=== PATIENT | male | born 2000 | race Hispanic/Latino ===

== ENCOUNTER 2025-07-03 07:57 | Emergency (ER) | payer SELFPAY ==
--- OUTSIDE RECORDS SUMMARY | 2025-07-03 08:05 | XMS REPORT | Continuity of Care Document ---
Author Name Unknown Address [address] [place] [address] [facility] Address [address] [place] [address] Care Team Providers Care Faculty Head Name Role Phone Quyen Lozano Primary Care Physician [phone] VAISHALI COLLINS Attending Clinician Unavailable VAISHALI COLLINS Attending Clinician Unavailable Vaishali Collins NP Attending Clinician [phone] JESSICA GRIFFITH Attending Clinician Unavailable Jessica Griffith MD Attending Clinician MAYA DE SANTIAGO Attending Clinician Unavaila ble Maya Dos Santos Attending Clinician [phone] VAISHALI COLLINS Admitting Clinician Unavailable MAYA DE SANTIAGO Admitting Clinician Unavaila ble Allergies, Adverse Reactions, Alerts Allergy Name Allergy Type Status Severity Reaction(s) Onset Date Inactive Date Treating Clinician Comments Source NO KNOWN ALLERGIE S Drug Class Active [facility] Social History Social Habit Start Date Stop Date Quantity Comments Source Sexual orientation U [facility] Sex assigned at 2000 00:00:00 2000 00:00:00 [facility] Smoking Status Start Date Stop Date Source Tobacco smoking consumption unknown [facility] Medications Ordered Medication Name Filled Medication Name Start Date Stop Date Current Medication? Ordering Clinician Indication Dosage Frequency Signature (SIG) Comments Components Source hydrochloro thiazide 25 mg tablet 2024-09 0 00:00: 00 Yes 1mg Ramon Block iopamidol (ISOVUE 370-500 mL) injection 100 mL 10-20 09:15: 00 10-20 09:15 :00 No [id number] 100mL 100 mL, Intravenou s, ONCE, 1 dose, On 10/20/24 at 0315, Routine [facility] HYDROcodone -acetaminop hen (NORCO 5) tablet 1 tablet 10-20 09:00: 00 10-20 08:51 :00 No 1{tbl} 1 tablet, Oral, ONCE, 1 dose, On 10/20/24 at 0300, ADAN [facility] methocarbam oL (ROBAXIN) tablet 1,000 mg 10-20 09:00: 00 10-20 08:51 :00 No 1000mg 1,000 mg, Oral, ONCE, 1 dose, On 10/20/24 at 0300, ADAN [facility] ketorolac (TORADOL) injection 30 mg 10-20 08:45: 00 10-20 07:47 :00 No 30mg 30 mg, Slow IV Push, ONCE, 1 dose, On 10/20/24 at 0245, Routine [facility] ketorolac 10 mg tablet 10-20 00:00: 00 Yes [id number] 10mg Take 1 tablet by mouth every 6 (six) hours as needed for Pain (scale 4-6) or Pain (scale 1-3). [facility] methocarbam oL 750 mg tablet 10-20 00:00: 00 10-24 05:59 :00 No [id number] 1500mg Take 2 tablets by mouth 4 (four) times daily for 3 days. [facility] NaCl 0.9% (NS) bolus infusion 1,000 mL 11-30 14:30: 00 11-30 14:50 :00 No 1000mL at 999 mL/hr, 1,000 mL, IV Piggyback, ONCE, 1 dose, On Zina 12/01/23 at 0930, STAT [facility] famotidine (PEPCID (PF)) injection 20 mg 11-30 13:30: 00 11-30 12:28 :00 No 20mg 20 mg, Slow IV Push, ONCE NOW, 1 dose, On Zina 12/01/23 at 0830, [facility] dicyclomine (BENTYL) injection 20 mg 11-30 13:30: 00 11-30 12:28 :00 No 20mg 20 mg, Intramuscu lar, ONCE NOW, 1 dose, On Zina 12/01/23 at 0830, Routine [facility] ketorolac (TORADOL) injection 30 mg 11-30 13:15: 00 11-30 12:28 :00 No 30mg 30 mg, Slow IV Push, ONCE NOW, 1 dose, On Zina 12/01/23 at 0815, [facility] NaCl 0.9% (NS) bolus infusion 1,000 mL 11-30 12:30: 00 11-30 13:12 :00 No 1000mL at 999 mL/hr, 1,000 mL, IV Infusion, ONCE, 1 dose, On Zina 12/01/23 at 0730, [facility] ondansetron (ZOFRAN (PF)) injection 4 mg 11-30 11:45: 00 11-30 12:10 :00 No 4mg 4 mg, Slow IV Push, ONCE, 1 dose, On Zina 12/01/23 at 0645, [facility] Oral Electrolyte s (PEDIALYTE ADVANCED CARE) solution 11-30 00:00: 00 10-20 00:00 :00 No [id number] 05 500mL Take 500 mL by mouth every 6 (six) hours. [facility] hyoscyamine sulfate (LEVSIN/SL) 0.125 mg sublingual tablet 11-30 00:00: 00 10-20 00:00 :[id number] 2 tablets under the tongue every 6 (six) hours as needed (Abdominal pain or cramping). [facility] ciprofloxac in HCl 500 mg tablet 11-30 00:00: 00 10-20 00:00 :00 No [id number] 500mg Take 1 tablet by mouth in the morning and 1 tablet in the evening. [facility] metoclopram barbie HCl 10 mg tablet 3-14 00:00: 00 10-20 00:00 :00 No [id number] 10mg Take 1 tablet by mouth every 6 (six) hours. [facility] ondansetron (ZOFRAN (PF)) injection 4 mg 03-02 04:30: 00 03-02 03:52 :00 No 4mg 4 mg, Slow IV Push, ONCE, 1 dose, On Tue03/01/23 at 2330, [facility] NaCl 0.9% (NS) bolus infusion 1,000 mL 03-02 04:30: 00 03-02 05:01 :00 No 1000mL at 999 mL/hr, 1,000 mL, IV Infusion, ONCE, 1 dose, On Tue03/01/23 at 2330, [facility] metoclopram barbie HCl (REGLAN) injection 10 mg 03-02 04:30: 00 03-02 04:22 :00 No 10mg 10 mg, Slow IV Push, ONCE, 1 dose, On Tue03/01/23 at 2330, [facility] ondansetron (ZOFRAN (PF)) injection 4 mg 03-02 03:15: 00 03-02 02:34 :00 No 4mg 4 mg, Slow IV Push, ONCE, 1 dose, On Tue03/01/23 at 2215, [facility] NaCl 0.9% (NS) bolus infusion 1,000 mL 03-02 03:15: 00 03-02 03:52 :00 No 1000mL at 999 mL/hr, 1,000 mL, IV Infusion, ONCE, 1 dose, On Tue03/01/23 at 2215, [facility] ondansetron 4 mg tablet 03-01 00:00: 00 10-20 00:00 :00 No [id number] 4mg Take 1 tablet by mouth every 8 (eight) hours as needed for Nausea and Vomiting (N/V). [facility] Immunizations Ordered Immunization Name Filled Immunization Name Date Status Comments Source SARS-COV-2 COVID-19 PFIZER VACCINE 2021-01-01 00:00:00 Completed [facility] SARS-COV-2 COVID-19 PFIZER VACCINE 2021-01-01 00:00:00 Completed [facility] SARS-COV-2 COVID-19 PFIZER VACCINE 2020-12-11 00:00:00 Completed [facility] SARS-COV-2 COVID-19 PFIZER VACCINE 2020-12-11 00:00:00 Completed [facility] SARS-COV-2 COVID-19 PFIZER VACCINE Unknown Completed [facility] Vital Signs Vital Name Observation Time Observation Value Comments S ource Systolic blood pressure 2024-10-20 09:06:00 135 mm[Hg] [facility] Diastolic blood pressure 2024-10-20 09:06:00 91 mm[Hg] [facility] Heart rate 2024-10-20 09:06:00 101 /min [facility] acute hospital Body temperature 2024-10-20 09:06:00 37.56 Caridad [facility] Respiratory rate 2024-10-20 09:06:00 16 /min [facility] Oxygen saturation in Arterial blood by Pulse oximetry 2024-10-20 09:06:00 99 /min [facility] Body height 2024-10-20 03:46:00 172.7 cm [facility] Body weight 2024-10-20 03:46:00 104.327 kg [facility] BMI 2024-10-20 03:46:00 34.97 kg/m2 [facility] Respiratory rate 2023-12-01 14:00:00 16 /min [facility] Oxygen saturation in Arterial blood by Pulse oximetry 2023-12-01 14:00:00 99 /min [facility] Systolic blood pressure 2023-12-01 14:00:00 142 mm[Hg] [facility] Diastolic blood pressure 2023-12-01 14:00:00 91 mm[Hg] [facility] Heart rate 2023-12-01 14:00:00 110 /min [facility] Body temperature 2023-12-01 11:13:00 37.22 Caridad [facility] Body height 2023-12-01 11:13:00 172.7 cm [facility] Body weight 2023-12-01 11:13:00 102.513 kg [facility] BMI 2023-12-01 11:13:00 34.36 kg/m2 [facility] Systolic blood pressure 2023-03-02 05:00:00 158 mm[Hg] [facility] Diastolic blood pressure 2023-03-02 05:00:00 96 mm[Hg] [facility] Heart rate 2023-03-02 05:00:00 105 /min General acute hospital Respiratory rate 2023-03-02 05:00:00 20 /min [facility] Oxygen saturation in Arterial blood by Pulse oximetry 2023-03-02 05:00:00 99 /min [facility] Body temperature 2023-03-02 02:19:00 36.78 Caridad [facility] Body height 2023-03-02 02:19:00 172.7 cm [facility] Body weight 2023-03-02 02:19:00 90.719 kg [facility] BMI 2023-03-02 02:19:00 30.41 kg/m2 [facility] Weight Measured 2025-06-26 09:00:00 230.00 pounds Ramon Tj Block Height Measured 2025-06-26 09:00:00 67.00 inches Ramon Tj Block Body Temperature 2025-06-26 09:00:00 97.90 degrees Ramon Tj Block Heart Rate 2025-06-26 09:00:00 100.00 /min Step hen F Umair Respiratory Rate 2025-06-26 09:00:00 18.00 /min Ramon Block BP Systolic 2025-06-26 09:00:00 165 mm[Hg] Step hen F Umair BP Diastolic 2025-06-26 09:00:00 117 mm[Hg] Julio phen F Umair Procedures Procedure Date / Time Performed Performing Clinician Source CT ABDOMEN PELVIS W CONTRAST 2024-10-20 08:15:26 Vaishali Collins [facility] LIPASE 2024-10-20 07:43:00 Vaishali Collins [facility] COMP. METABOLIC PANEL ([id number]) 2024-10-20 07:43:00 Vaishali Collins [facility] CBC WITH DIFF 2024-10-20 07:43:00 Vaishali Collins [facility] URINALYSIS 2024-10-20 07:43:00 Vaishali Collins [facility] URINALYSIS 2023-12-01 12:16:00 Darwin Grijalva [facility] LIPASE 2023-12-01 12:09:00 Darwin Grijalva [facility] COMP. METABOLIC PANEL ([id number]) 2023-12-01 12:09:00 Darwin Grijalva [facility] CBC WITH DIFF 2023-12-01 12:09:00 Darwin Grijalva General acute hospital CONSENT/REFUSAL FOR DIAGNOSIS AND TREATMENT 2023-12-01 11:04:37 Doctor Unassigned, [place] [facility] LIPASE 2023-03-02 02:33:[address] [facility] COMP. METABOLIC PANEL ([id number]) 2023-03-02 02:33:00 [facility] 2023-03-02 02:33:00 [facility] URINALYSIS 2023-03-02 02:33:[address] [facility] URINE DRUG (IMMUNOASSAY) - COMPREHENSIVE DRUG SCREEN W/O REFLEX 2023-03-02 02:33:00 [facility] NOTICE OF PRIVACY PRACTICES 2023-03-02 02:11:14 Doctor Unassigned, [place] [facility] CONSENT/REFUSAL FOR DIAGNOSIS AND TREATMENT 2023-03-02 02:10:24 Doctor Unassigned, [place] [facility] Encounters Start Date/Time End Date/Time Encounter Type Admission Type Attending [facility] Care Department Encounter ID Source 2025-06-26 08:49:48 2025-06-26 08:49:48 Outpatient S[facility] [id number] Ramon Block 2025-06-26 00:00:00 2025-06-26 00:00:00 Outpatient Visit [facility] [id number] Ramon Block 2024-10-19 22:11:00 2024-10-20 03:28:00 Emergency X DENNIS VAISHALIVAISHALI VASQUEZ RUST ERT [id number] [facility] 2024-10-19 22:11:00 2024-10-20 03:28:00 Emergency Vaishali Collins [facility] [id number] [facility] 2023-12-01 06:16:00 2023-12-01 09:51:00 Emergency X JESSICA GRIFFITH RUST ERT [id number] [facility] 2023-12-01 06:16:00 2023-12-01 09:51:00 Emergency Jessica Griffith [facility] [id number] [facility] 2023-03-01 21:23:00 2023-03-02 00:07:00 Emergency X MAYA DE SANTIAGO RUST ERT [id number] [facility] 2023-03-01 21:23:00 2023-03-02 00:07:00 Emergency [place] mireles [facility] [id number] [facility] Results Test Description Test Time Test Comments Results Result Comments Source CT Abdomen pelvis w contrast 08:46:58 ORDERING PHYSICIAN:VAISHALI PEREZ CLINICAL INFORMATION: ? Abdominal pain, hernia suspected COMPARISON: None Technique: ? CT of the abdomen and pelvis was performed after theadministration of IV contrast. No p.o. contrast was used. Multiplanarreformats were also obtained. This study was performed according to ALARAprinciple for radiation dose reduction. Findings: There is no evidence of obstructive uropathy. No suspicious renalparenchymal abnormalities are seen. Liver, gallbladder, spleen, adrenalglands, and pancreas show no evidence of gross abnormality. There is nobowel obstruction. Appendix is normal. No free intraperitoneal air or fluidare seen. No pathologically enlarged lymph nodes are seen. Lung basesremain clear. There are no suspicious focal osseous lesions. [facility] Test Item Value Reference Range Interpretation Comme nts LIPASE (test code = 7721113675) 235 U/L 0-220 H Lab Interpretation (test cod e = 75577-3) [facility] WITH [id number] 07:53:22* Test Item Value Reference Range Interpretation Comme nts WBC (test code = 6690-2) 13.87 4.20-10.70 H RBC (test code = 789-8) 6.20 4.26-5.52 H HGB (test code = 718-7) 16.7 g/dL 12.2-16.4 H HCT (test code = 4544-3) 50.4 % 38.4-49.3 H MCV (test code = 787-2) 81.3 fL 81.7-95.6 L MCH (test code = 785-6) 26.9 pg 26.1-32.7 MCHC (test code = 786-4) 33.1 g/dL 31.2-35.0 RDW-SD (test code = 38581-6) 37.5 fL 38.5-51.6 L RDW-CV (test code = 788-0) 12.9 % 12.1-15.4 PLT (test code = 777-3) 212 150-328 MPV (test code = 26484-4) 11.9 fL 9.8-13.0 NRBC/100 WBC (test code = 5466154264) 0.0 0.0-10.0 NRBC x10^3 (test code = 7314386297) See_Comment [Automated message] The system which generated this result transmitted reference range: 10*3/?L. The reference range was not used to interpret this result as normal/abnormal. GRAN MAT (NEUT) % (test code = 770-8) 87.5 % IMM GRAN % (test code = 4319179075) 0.30 % LYMPH % (test code = 736-9) 7.3 % MONO % (test code = 5905-5) 4.5 % EOS % (test code = 713-8) 0.1 % BASO % (test code = 706-2) 0.3 % GRAN MAT x10^3(ANC) (test code = 1904859335) 12.14 10*3/uL 1.99-6.95 H IMM GRAN x10^3 (test code = 1821840312) 0.04 10*3/uL 0.00-0.06 LYMPH x10^3 (test code = 731-0) 1.01 10*3/uL 1.09-3.23 L MONO x10^3 (test code = 742-7) 0.63 10*3/uL 0.36-1.02 EOS x10^3 (test code = 711-2) 0.06-0.53 L BASO x10^3 (test code = 704-7) 0.04 10*3/uL 0.01-0.09 Lab Interpretation (test code = 60905-9) [facility][id number][facility]2023-12-01 13:15:09* Test Item Value Reference Range Interpretation Comme nts NA (test code = 5408974135) 139 mmol/L 135-145 K (test code = 8685438225) 4.0 mmol/L 3.5-5.0 CL (test code = 6833129389) 104 mmol/L 98-108 CO2 TOTAL (test code = 0803667803) 23 mmol/L 23-31 AGAP (test code = 6828498000) 12 2-16 BUN (test code = 9090033320) 21 mg/dL 7-23 GLUCOSE (test code = 9560175982) 177 mg/dL 70-110 H CREATININE (test code = 2160-0) 1.03 mg/dL 0.60-1.25 TOTAL BILI (test code = 0443114041) 1.0 mg/dL 0.1-1.1 CALCIUM (test code = 9380932233) 10.3 mg/dL 8.6-10.6 T PROTEIN (test code = 4680878959) 9.7 g/dL 6.3-8.2 H ALBUMIN (test code = 9662615954) 5.3 g/dL 3.5-5.0 H ALK PHOS (test code = 2922082182) 100 U/L 34-122 ALTv (test code = 1742-6) 49 U/L 5-50 AST(SGOT) (test code = 7893761777) 38 U/L 13-40 eGFR (test code = 28795-9) 104.0 mL/min/1.73m2 CKD-EPI eGFR (2020). Assuming creatinine has been stable day-to-day for at least three months, the eGFR indicates Category G1 (>= 90 mL/min/1.73 m2) Lab Interpretation (test code = 28630-4) [facility] 13:08:30* Test Item Value Reference Range Interpretation Comme nts LIPASE (test code = 8555592527) 175 U/L 0-220 Lab Interpretation (test cod e = 30077-9) Normal [facility] [id number] 12:50:09* Test Item Value Reference Range Interpretation Comme nts WBC (test code = 6690-2) 15.53 4.20-10.70 H RBC (test code = 789-8) 6.27 4.26-5.52 H HGB (test code = 718-7) 16.8 g/dL 12.2-16.4 H HCT (test code = 4544-3) 50.3 % 38.4-49.3 H MCV (test code = 787-2) 80.2 fL 81.7-95.6 L MCH (test code = 785-6) 26.8 pg 26.1-32.7 MCHC (test code = 786-4) 33.4 g/dL 31.2-35.0 RDW-SD (test code = 49901-1) 36.8 fL 38.5-51.6 L RDW-CV (test code = 788-0) 13.1 % 12.1-15.4 PLT (test code = 777-3) 231 150-328 MPV (test code = 99039-1) 12.8 fL 9.8-13.0 IPF % (test code = 5820296703) 11.0 % 1.2-10.7 H Platelet count measured by fluorescence method. NRBC/100 WBC (test code = 3587193811) 0.0 0.0-10.0 NRBC x10^3 (test code = 1517763350) See_Comment [Automated Qalendraa ge] The system which generated this result transmitted reference range: 10*3/?L. The reference range was not used to interpret this result as normal/abnormal. GRAN MAT (NEUT) % (test code = 770-8) 92.8 % IMM GRAN % (test code = 1216888685) 0.50 % LYMPH % (test code = 736-9) 4.1 % MONO % (test code = 5905-5) 2.4 % EOS % (test code = 713-8) 0.0 % BASO % (test code = 706-2) 0.2 % GRAN MAT x10^3(ANC) (test code = 5372952423) 14.41 10*3/uL 1.99-6.95 H IMM GRAN x10^3 (test code = 5433218040) 0.07 10*3/uL 0.00-0.06 H LYMPH x10^3 (test code = 731-0) 0.64 10*3/uL 1.09-3.23 L MONO x10^3 (test code = 742-7) 0.38 10*3/uL 0.36-1.02 EOS x10^3 (test code = 711-2) 0.06-0.53 L BASO x10^3 (test code = 704-7) 0.03 10*3/uL 0.01-0.09 Lab Interpretation (test code = 46030-6) [facility]normal [facility]IC PAN[facility] ([id number])2023-03-02 03:07:13* Test Item Value Reference Range Interpretation Comme nts NA (test code = 3921014838) 139 mmol/L 135-145 K (test code = 7783524111) 3.9 mmol/L 3.5-5.0 CL (test code = 7620720983) 99 mmol/L 98-108 CO2 TOTAL (test code = 4515493269) 25 mmol/L 23-31 AGAP (test code = 8601576222) 15 2-16 BUN (test code = 8462273891) 22 mg/dL 7-23 GLUCOSE (test code = 4043410194) 95 mg/dL 70-110 CREATININE (test code = 5212788391) 1.10 mg/dL 0.60-1.25 TOTAL BILI (test code = 7051324162) 1.8 mg/dL 0.1-1.1 H CALCIUM (test code = 8138621152) 10.1 mg/dL 8.6-10.6 T PROTEIN (test code = 9092311268) 9.0 g/dL 6.3-8.2 H ALBUMIN (test code = 3747858897) 5.4 g/dL 3.5-5.0 H ALK PHOS (test code = 4503216272) 88 U/L 34-122 ALTv (test code = 1742-6) 98 U/L 5-50 H AST(SGOT) (test code = 1738146823) 62 U/L 13-40 H eGFR (test code = 0734242895) 83.0 mL/min/1.73m2 NEW (test code = NEW) Association of Glomerular Filtration Rate (GFR) and Staging of Kidney Disease* + --+ --+ ------+| GFR (mL/min/1.73 m2) ?| With Kidney Damage ?| ?Without Kidney Damage+ --------+ --------+ +| ?>90 ?| ?Stage one ?| ? Normal ?+ ---+ ---+ -------+| ?60-89 ?| ?Stage two ?| ? Decreased GFR ? + --+ --+ ------+| ?30-59 ?| ?Stage three ?| ? Stage three ? + --+ --+ ------+| ?15-29 ?| ?Stage four ? | ? Stage four ?+ ---+ ---+ -------+| ?<15 (or dialysis) ? ?| ?Stage five ? | ? Stage five ?+ ---+ ---+ -------+ *Each stage assumes the associated GFR level has been in effect for at least three months. ?Stages 1 to 5, with or without kidney disease, indicate chronic kidney disease. Notes: Determination of stages one and two (with eGFR >59mL/min/1.73 m2) requires estimation of kidney damage for at least three months as defined by structural or functional abnormalities of the kidney, manifested by either:Pathological abnormalities or Markers of kidney damage (including abnormalities in the composition of the blood or urine or abnormalities in imaging tests). Lab Interpretation (test code = 86305-0) [facility] 03:06:53* Test Item Value Reference Range Interpretation Comme nts LIPASE (test code = 9919643686) 299 U/L 0-220 H Lab Interpretation (test cod e = 16506-3) Abnormal [facility] WITH [id number] 03:04:11* Test Item Value Reference Range Interpretation Comme nts WBC (test code = 6690-2) 12.16 See_Comment H [Automated [employer] The system which generated this result transmitted reference range: 4.20 - 10.70 10*3/?L. The reference range was not used to interpret this result as normal/abnormal. RBC (test code = 789-8) 6.03 See_Comment H [Automated [employer]] The system which generated this result transmitted reference range: 4.26 - 5.52 10*6/?L. The reference range was not used to interpret this result as normal/abnormal. HGB (test code = 718-7) 16.4 g/dL 12.2-16.4 HCT (test code = 4544-3) 49.2 % 38.4-49.3 MCV (test code = 787-2) 81.6 fL 81.7-95.6 L MCH (test code = 785-6) 27.2 pg 26.1-32.7 MCHC (test code = 786-4) 33.3 g/dL 31.2-35.0 RDW-SD (test code = 54299-7) 39.1 fL 38.5-51.6 RDW-CV (test code = 788-0) 13.4 % 12.1-15.4 PLT (test code = 777-3) 214 See_Comment [Automated messa ge] The system which generated this result transmitted reference range: 150 - 328 10*3/?L. The reference range was not used to interpret this result as normal/abnormal. MPV (test code = 33960-5) 12.2 fL 9.8-13.0 NRBC/100 WBC (test code = 7759277169) 0.0 See_Comment [Automated me ssage] The system which generated this result transmitted reference range: 0.0 - 10.0 /100 WBCs. The reference range was not used to interpret this result as normal/abnormal. NRBC x10^3 (test code = 9605783320) See_Comment [Automated messa ge] The system which generated this result transmitted reference range: 10*3/?L. The reference range was not used to interpret this result as normal/abnormal. GRAN MAT (NEUT) % (test code = 770-8) 69.0 % IMM GRAN % (test code = 3726080682) 0.60 % LYMPH % (test code = 736-9) 22.2 % MONO % (test code = 5905-5) 7.4 % EOS % (test code = 713-8) 0.6 % BASO % (test code = 706-2) 0.2 % GRAN MAT x10^3(ANC) (test code = 6439802192) 8.39 10*3/uL 1.99-6.95 H IMM GRAN x10^3 (test code = 5006262819) 0.07 10*3/uL 0.00-0.06 H LYMPH x10^3 (test code = 731-0) 2.70 10*3/uL 1.09-3.23 MONO x10^3 (test code = 742-7) 0.90 10*3/uL 0.36-1.02 EOS x10^3 (test code = 711-2) 0.07 10*3/uL 0.06-0.53 BASO x10^3 (test code = 704-7) 0.03 10*3/uL 0.01-0.09 Lab Interpretation (test code = 01481-2) Abnormal [facility] Notes Date/Time Note Provider Source Ramon Block [facility]2025-02-01 03:27:13 Awake, alert oriented X4, respiratory even and unlabored,skin w/d color appropriate for race, moves all ext well, pt encouraged to follow up with pcp and or return as needed. Pt given printed and verbal discharge instructions regarding LUQ pain and muscle strain of chest wall. Patient verbalized understanding and signature obtained, patient denies any other concerns. Prescriptions provided. Advised to seek medical attention for new/prolonged/worsening of symptoms. No adverse reaction to meds given in ER noted upon discharge. Pt ambulated to the [facility] with steady gait. NING TEAM MEMBER Meaghan Lopez [id number] 21:43:48 Pt. Presents to ED with C/O of LUQ pain; ambulates with steady gait; pt. Reports he was carrying approx. 60-70 lb box upstairs and felt a ripping sensation & a pt. Saw a "bubble" like mass appear under skin; pt. Reports sharp pain to left-sided rib cage NING TEAM MEMBER Gracie Lopez [facility], [place]onQfioyi9043-29-63 09:51:14 PT D/C home. GCS15, VS stable. Given D/C paperwork. Pt ambulatory at time of discharge. Pt educated on med usage, follow up care, s/s worsening condition, need for hydration. Pt verbalized understanding. [facility]2024-03-14 09:11:17 D/c hold for IV fluids infusing [facility] [id number] 06:11:28 Pt arrived with c/o N/V, approximatly 15x in the past 24hours. Pt states he is unable to to keep anything down. Pt states his abdomen only hurt while vomiting. Shayla Sauceda RNSelect [facility], [id number] 06:03:00 [facility] Emergency Department Note Patient Name: Mariely Bunn Date of : 2000 23 year old male Treatment Room: [place] [address] Primary Care Physician: PATIENT DOES NOT HAVE A PCP Patient Escorted by: Family [5] Mode of Arrival: Personal means [1] EMS Treatment Prior to ED Arrival: [employer] treatment: None Travel and Exposure Screening: Symptoms Does patient have any of these symptoms?: (not recorded) Exposure Screening Has patient had contact with someone with a communicable disease in the last month?: (not recorded) Diseases exposed to:: (not recorded) Is Patient ?: (not recorded) Exposure Date: (not recorded) Chief Complaint: Chief Complaint Patient presents with Vomiting History of Present Illness: Pt arrived with c/o N/V, approximatly 15x in the past 24hours. Pt states he is unable to to keep anything down. Pt states his abdomen only hurt while vomiting History provided by: Patient ophthalmic asst used: No Vomiting Severity: Moderate Duration: 1 day Timing: Constant Number of daily episodes: Several Quality: Bilious material and stomach contents Feeding tolerance: Nothing. Progression: Worsening Chronicity: New Recent urination: Decreased Context comment: Possible food poisoning Relieved by: None tried Worsened by: Food smell Ineffective treatments: None tried Associated symptoms: abdominal pain and chills Associated symptoms: no arthralgias, no cough, no fever, no headaches, no myalgias and no sore throat Associated symptoms comment: Cramping all over Risk factors: suspect food intake Risk factors: no alcohol use, no diabetes, not , no prior abdominal surgery and no sick contacts Past Medical History/Immunizations: No past medical history on file. Tetanus received in last 5 years: No Childhood immunizations: Up-to-date Allergies: No Known Allergies Past Social History: Substance & Sexual Activity No substance use or sexual activity history on file. Past Surgical History: No past surgical history on file. Review of Systems: Review of Systems Constitutional: Positive for chills. Negative for activity change, appetite change, diaphoresis, fatigue and fever. HENT: Negative for congestion, ear discharge, ear pain, rhinorrhea, sore throat and trouble swallowing. Eyes: Negative for photophobia, pain, discharge and redness. Respiratory: Negative for cough, chest tightness, shortness of breath and wheezing. Cardiovascular: Negative for chest pain, palpitations and leg swelling. Gastrointestinal: Positive for abdominal pain, nausea and vomiting. Negative for abdominal distention, blood in stool and constipation. Genitourinary: Negative for dysuria, urgency, polyuria, frequency, hematuria and flank pain. Musculoskeletal: Negative for arthralgias, joint swelling, myalgias and neck stiffness. Skin: Negative for color change, rash and wound. Neurological: Negative for dizziness, seizures, syncope, facial asymmetry, weakness, light-headedness, numbness and headaches. Psychiatric/Behavioral: Negative for agitation, confusion, hallucinations and self-injury. The patient is not nervous/anxious. Hematological: Negative for adenopathy and cold intolerance. Does not bruise/bleed easily. Endocrine: Negative for cold intolerance, polydipsia and polyuria. Physical Exam: ED Triage Vitals [12/01/23 0613] Weight 102.5 kg (226 lb) Actual or estimated Actual Height 1.727 m (5' 8") BP (!) 125/101 Pulse 109 Resp 18 Temp 37.2 ?C (99 ?F) Temp source Oral SpO2 100 % Measured on Room air Physical Exam Vitals and nursing note reviewed. Constitutional: General: He is awake. He is not in acute distress. Appearance: He is well-developed, well-groomed and overweight. He is not ill-appearing, toxic-appearing or diaphoretic. Comments: Pale HENT: Head: Normocephalic and atraumatic. Right Ear: External ear normal. Left Ear: External ear normal. Nose: Nose normal. Mouth/Throat: Pharynx: No oropharyngeal exudate. Eyes: General: No scleral icterus. Right eye: No discharge. Left eye: No discharge. Conjunctiva/sclera: Conjunctivae normal. Pupils: Pupils are equal, round, and reactive to light. Neck: Thyroid: No thyromegaly. Vascular: No JVD. Trachea: No tracheal deviation. Cardiovascular: Rate and Rhythm: Normal rate and regular rhythm. Heart sounds: Normal heart sounds. No murmur heard. No friction rub. No gallop. Pulmonary: Effort: Pulmonary effort is normal. No respiratory distress. Breath sounds: Normal breath sounds. No stridor. No wheezing or rales. Chest: Chest wall: No tenderness. Abdominal: General: Bowel sounds are increased. There is no distension. Palpations: Abdomen is soft. There is no mass. Tenderness: There is abdominal tenderness in the epigastric area. There is no guarding or rebound. Musculoskeletal: General: No tenderness or deformity. Normal range of motion. Cervical back: Normal range of motion and neck supple. Lymphadenopathy: Cervical: No cervical adenopathy. Skin: General: Skin is warm and dry. Coloration: Skin is not pale. Findings: No erythema or rash. Neurological: Mental Status: He is alert and oriented to person, place, and time. Cranial Nerves: No cranial nerve deficit. Motor: No abnormal muscle tone. Coordination: Coordination normal. Deep Tendon Reflexes: Reflexes are normal and symmetric. Reflexes normal. Psychiatric: Behavior: Behavior normal. Behavior is cooperative. Thought Content: Thought content normal. Judgment: Judgment normal. Radiology: No orders to display Lab Results: Lab Results CBC WITH DIFF - Abnormal Result Value Ref Range WBC 15.53 (*) 4.20 - 10.70 10*3/?L RBC 6.27 (*) 4.26 - 5.52 10*6/?L HGB 16.8 (*) 12.2 - 16.4 g/dL HCT 50.3 (*) 38.4 - 49.3 % MCV 80.2 (*) 81.7 - 95.6 fL MCH 26.8 26.1 - 32.7 pg MCHC 33.4 31.2 - 35.0 g/dL RDW-SD 36.8 (*) 38.5 - 51.6 fL RDW-CV 13.1 12.1 - 15.4 % PLT 231 150 - 328 10*3/?L MPV 12.8 9.8 - 13.0 fL IPF % 11.0 (*) 1.2 - 10.7 % NRBC/100 WBC 0.0 0.0 - 10.0 /100 WBCs NRBC x103<0.01 10*3/?L GRAN MAT (NEUT) % 92.8 % IMM GRAN % 0.50 % LYMPH % 4.1 % MONO % 2.4 % EOS % 0.0 % BASO % 0.2 % GRAN MAT x103(ANC) 14.41 (*) 1.99 - 6.95 10*3/uL IMM GRAN x1030.07 (*) 0.00 - 0.06 10*3/uL LYMPH x1030.64 (*) 1.09 - 3.23 10*3/uL MONO x1030.38 0.36 - 1.02 10*3/uL EOS x103<0.03 (*) 0.06 - 0.53 10*3/uL BASO x1030.03 0.01 - 0.09 10*3/uL COMP. METABOLIC PANEL (39166) - Abnormal NA 139 135 - 145 mmol/L K 4.0 3.5 - 5.0 mmol/L CL 104 98 - 108 mmol/L CO2 TOTAL 23 23 - 31 mmol/L AGAP 12 2 - 16 BUN 21 7 - 23 mg/dL GLUCOSE 177 (*) 70 - 110 mg/dL CREATININE 1.03 0.60 - 1.25 mg/dL TOTAL BILI 1.0 0.1 - 1.1 mg/dL CALCIUM 10.3 8.6 - 10.6 mg/dL T PROTEIN 9.7 (*) 6.3 - 8.2 g/dL ALBUMIN 5.3 (*) 3.5 - 5.0 g/dL ALK PHOS 100 34 - 122 U/L ALTv 49 5 - 50 U/L AST(SGOT) 38 13 - 40 U/L eGFR 104.0 mL/min/1.73m2 URINALYSIS - Abnormal APPEARANCE Turbid (*) Clear COLOR Yellow Yellow PH 5.0 4.8 - 8.0 SP GRAVITY 1.034 (*) 1.003 - 1.030 GLU U QUAL Normal Normal BLOOD Negative Negative KETONES 20 mg/dL (*) Negative PROTEIN 100 mg/dL (*) Negative UROBILIN Normal Normal BILIRUBIN Negative Negative NITRITE Negative Negative LEUK OTONIEL Negative Negative RBC/HPF 2 0 - 3 HPF WBC/HPF 1 0 - 5 HPF BACTERIA Negative Negative MUCOUS Marked (*) Negative LPF AMORPHOUS Moderate (*) Rare HPF LIPASE - Normal LIPASE 175 0 - 220 U/L EKG: If EKG completed, see Procedure Note. Orders and Treatments: Orders Placed This Encounter Procedures CBC WITH DIFF COMP. METABOLIC PANEL (52196) LIPASE Urinalysis Orders Placed This Encounter Medications NaCl 0.9% (NS) bolus infusion 1,000 mL ondansetron (ZOFRAN (PF)) injection 4 mg dicyclomine (BENTYL) injection 20 mg ketorolac (TORADOL) injection 30 mg famotidine (PEPCID (PF)) injection 20 mg NaCl 0.9% (NS) bolus infusion 1,000 mL Oral Electrolytes (PEDIALYTE ADVANCED CARE) solution hyoscyamine sulfate (LEVSIN/SL) 0.125 mg sublingual tablet ciprofloxacin HCl 500 mg tablet metoclopramide HCl 10 mg tablet First Provider Eval: ED Events Date/Time Event User Comments 12/01/23715 Medical Screening Begins JESSICA GRIFFITH MD -- 12/01/23715 First Provider Evaluation JESSICA GRIFFITH MD -- ED COURSE Patient's condition improved with the treatment provided in the ED, will DC Home with adequate medications to treat his condition, and a referral to a PCP so he can have further evaluation regarding his elevated blood sugar. Diagnosis/Impression as of 12/01/23 0856 Nausea and vomiting, unspecified vomiting type Hyperglycemia, unspecified Dehydration, moderate Food poisoning Procedures: Procedures MDM: Medical Decision Making Problems Addressed: Dehydration, moderate: complicated acute illness or injury with systemic symptoms that poses a threat to life or bodily functions Food poisoning: complicated acute illness or injury with systemic symptoms that poses a threat to life or bodily functions Hyperglycemia, unspecified: undiagnosed new problem with uncertain prognosis Nausea and vomiting, unspecified vomiting type: complicated acute illness or injury with systemic symptoms that poses a threat to life or bodily functions Amount and/or Complexity of Data Reviewed Independent Historian: parent Details: Father at bed side provided additional details regarding his case External Data Reviewed: labs and notes. Details: From previous visits reviewed and compared with current data Labs: ordered. Decision-making details documented in ED Course. Risk OTC drugs. Prescription drug management. Flowsheet Documentation: Scoring Tools: No data recorded Disposition/Condition: ED Disposition ED Disposition Disch - Home Condition Stable Comment -- Discharge Medications: Patient's Medications START taking these medications CIPROFLOXACIN HCL 500 MG TABLET Take 1 tablet by mouth in the morning and 1 tablet in the evening. HYOSCYAMINE SULFATE (LEVSIN/SL) 0.[address] 2 tablets under the tongue every 6 (six) hours as needed (Abdominal pain or cramping). METOCLOPRAMIDE HCL 10 MG TABLET Take 1 tablet by mouth every 6 (six) hours. ORAL ELECTROLYTES (PEDIALYTE ADVANCED CARE) SOLUTION Take 500 mL by mouth every 6 (six) hours. CONTINUE taking these medications which have NOT CHANGED ONDANSETRON 4 MG TABLET Take 1 tablet by mouth every 8 (eight) hours as needed for Nausea and Vomiting (N/V). START taking Modified Medications as Prescribed No medications on file STOP taking these medications No medications on file Follow-up: Contact information for follow-up Ramon Cummings [facility] ([facility]) - [facility] - Adult Primary [facility] [address] [facility] [id number] Instructions: TO BE EVALUATED FOR POSSIBLE NEW ONSET DIABETES Electronically signed by: Jessica Griffith MD 12/01/23 0856 T [facility] [place]
[2025-07-03 09:01] LABS: Absolute Lymphocytes (CBC) 1.7 K/uL (0.7-4.9); Hematocrit 48.4 % (39.6-49.0); Hemoglobin 15.9 g/dL (13.6-17.9); MCH 26.4 pg (27.0-35.0); MCHC 32.9 g/dL (32.0-36.0); MCV 80.1 fL (80-100); MPV 9.6 fL (7.6-11.3); Nucleated RBC Absolute Count 0.0 (0-0); Nucleated Red Blood Cells % 0.1 % (0-0); RBC Red Blood Cell Count 6.04 M/uL (4.33-5.43); White Blood Count 8.20 thou/uL (4.3-10.9)
[2025-07-03 09:27] LABS: ALT/SGPT 31 U/L (16-61); Albumin 4.0 g/dL (3.4-5.0); Albumin/Globulin Ratio 1.0 (1.1-1.8); Alkaline Phosphatase 90 U/L (45-117); Anion Gap 9.3 mEq/L (5.0-15.0); BUN Blood Urea Nitrogen 13 mg/dL (7-18); Globulin 4.1 g/dL (2.3-3.5); Glucose Level 129 mg/dL (74-106); Troponin High Sensitivity 5.9 pg/mL (<58.9)
[2025-07-03 09:28] LABS: AST/SGOT 33 U/L (15-37); Bilirubin Indirect, Calculated 0.4 mg/dL (0.2-0.8); Magnesium 2.3 mg/dL (1.6-2.4); Potassium 4.3 mEq/L (3.5-5.1)
--- NOTE | 2025-07-03 09:38 | RAD REPORT ---
Procedure: Chest Single View HISTORY: Chest pain COMPARISON: 2014 FINDINGS: The lungs appear clear of acute infiltrate. No significant pleural effusion noted. The heart is normal size. IMPRESSION: No acute abnormality is displayed.
[2025-07-03] MEDS ORDERED: NA CHLORIDE 0.9% 1,000 ML ONE (09:59)
--- NOTE | 2025-07-03 10:11 | EDPHYS ---
Physician Documentation [facility] Name: Richard Bunn Age: 25 yrs Sex: Male : 2000 Arrival Date: 07/03/2025 Time: 07:57 Bed 7 Private MD: ED Physician Enrrique Gary HPI: 07/03 08:36 This 25 yrs old Male presents to ER via Ambulatory with complaints of Nausea, kb High Blood Pressure, Feet Swelling. 08:36 Pt is a 25 year old male who presents for nausea, vomiting, hands and feet swelling kb that has been intermittent for a long time. States he had a physical at work and his blood pressure was high so he thinks that is the cause of his symptoms. Pt followed up with the [facility] clinic and they prescribed an unknown medication for HTN, but he hasn't picked it up yet. States his pressure has been around 160/120. Historical: - Allergies: 08:04 No Known Drug Allergies; ll1 - PMHx: 08:04 Hypertensive disorder; ll1 - Immunization history:: Adult Immunizations up to date. - Infectious Disease History:: Denies. - Social history:: Smoking status: Patient denies any tobacco usage or history of. ROS: 08:44 Constitutional: As per HPI kb Exam: 08:44 Constitutional: This is a well developed, well nourished patient who is awake, alert, kb and in no acute distress. Head/Face: Normocephalic, atraumatic. ENT: Moist Mucous membranes Cardiovascular: Regular rate Respiratory: Respirations even and unlabored. No increased work of breathing. Talking in full sentences Abdomen/GI: Soft, non-tender. No distention Skin: Warm, dry with normal turgor. Normal color. MS/ Extremity: Pulses equal, no cyanosis. Neurovascular intact. Full, normal range of motion. Neuro: Awake and alert, GCS 15, oriented to person, place, time, and situation. 09:50 ECG was reviewed by the Attending Physician. kb Vital Signs: 08:05 BP 147 / 106; ll1 08:11 BP 142 / 106; Pulse 86; Resp 17; Temp 98.9(O); Pulse Ox 99% ; Weight 104.33 kg; Height ll1 5 ft. 8 in. ; Pain 0/10; 08:38 BP 158 / 110; Pulse 93; Resp 16; Pulse Ox 98% ; db 09:30 BP 145 / 105; Pulse 90; Resp 18; Pulse Ox 95% ; db 11:00 BP 170 / 107; Pulse 93; Resp 18; Pulse Ox 97% ; db 08:11 Body Mass Index 34.97 (104.33 kg, 172.72 cm) ll1 08:11 Pain Scale: Adult ll1 11:00 ROVIDER AWARE OF BP. PT IS PICKING UP BP MEDICATIONS db MDM: 08:01 Medical Screening Exam initiated kb 10:07 Data reviewed: vital signs, nurses notes. kb 10:09 Differential diagnosis: Abnormal electrolytes, dehydration, acute renal failure, kb rhabdomyolysis, primary hypertension. Historians other than the Patient: Parent: Mother. Counseling: I had a detailed discussion with the patient and/or guardian regarding the historical points, exam findings, and any diagnostic results supporting the discharge/admit diagnosis, lab results, radiology results, the need for outpatient follow up, a family practitioner, to return to the emergency department if symptoms worsen or persist or if there are any questions or concerns that arise at home. Special discussion: I have referred the patient to see his PCP for further evaluation of high blood pressure. ED course: Patient has prescription for hypertension medication ready for pickup at [facility]. 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 Patient states he is already keeping a blood pressure log for the clinic and will follow back up with them.. 07/03 08:07 Order name: Basic Metabolic Panel; Complete Time: 09:32 kb 07/03 08:07 Order name: CBC with Diff; Complete Time: 09:11 kb 07/03 08:07 Order name: LFT's; Complete Time: 09:32 kb 07/03 08:07 Order name: Magnesium; Complete Time: 09:32 kb 07/03 08:07 Order name: Troponin HS; Complete Time: 09:32 kb 07/03 08:07 Order name: CPK; Complete Time: 09:32 kb 07/03 08:07 Order name: XRAY Chest (1 view); Complete Time: 09:42 kb 07/03 08:07 Order name: EKG; Complete Time: 08:08 kb 07/03 08:07 Order name: Cardiac monitoring; Complete Time: 08:48 kb 07/03 08:07 Order name: EKG - Nurse/Tech; Complete Time: 08:48 kb 07/03 08:07 Order name: IV Saline Lock; Complete Time: 08:48 kb 07/03 08:07 Order name: Labs collected and sent; Complete Time: 08:48 kb 07/03 08:07 Order name: O2 Per Protocol; Complete Time: 08:48 kb 07/03 08:07 Order name: O2 Sat Monitoring; Complete Time: 08:48 kb EC:50 Rate is 87 beats/min. Rhythm is regular. QRS [place] is Normal. IA interval is normal at kb 138 msec. QRS interval is normal at 82 msec. QT interval is normal at 407 msec. Administered Medications: 09:57 Not Given (Physician Discretion): clonidine0.1 mg PO once kb 10:10 Drug: NS 0.9% IV 1000 ml IV at 1000 ml once; to be given as a bolus over 60 minutes db Route: IV; Rate: 1000 ml; Site: right antecubital; 11:24 Follow up: Response: No adverse reaction; IV Status: Completed infusion; IV Intake: db 1000ml Disposition: 07/04 07:29 Co-signature as Attending Physician, Enrrique Gary MD I agree with the assessment and sonia plan of care. Disposition Summary: 07/03/25 10:10 Discharge Ordered Notes: Location: Home kb Condition: Stable kb Diagnosis - Essential (primary) hypertension kb Followup: kb - With: Emergency Department - When: As needed - Reason: Worsening of condition Followup: kb - With: Private Physician - When: 2 - 3 days - Reason: Recheck today's complaints, Continuance of care, Re-evaluation by your physician Discharge Instructions: - Discharge Summary Sheet kb - Hypertension, Adult, [id number] kb - Heat Exhaustion kb - How to Take Your Blood Pressure, [id number] kb - Managing Your Hypertension kb Forms: - Medication Reconciliation Form kb - Antibiotic Education kb - Prescription Opioid Use kb - Patient Portal Instructions kb - Leadership Thank You Letter kb - Work release form db Signatures: Dispatcher [employer] Pili Rodriguez FNP-C FNP-Enrrique Moyer MD MD cha Lewis, Lynsay, RN RN ll1 Susan Barnes RN RN db Corrections: (The following items were deleted from the chart) 07/03 08:08 08:08 BASIC METABOLIC PANEL+C.LAB.BRZ ordered. EDMS EDMS 08:08 08:08 CBC+H.LAB.BRZ ordered. EDMS EDMS 08:08 08:08 HEPATIC FUNCTION+C.LAB.BRZ ordered. EDMS EDMS 08:08 08:08 MAGNESIUM+C.LAB.BRZ ordered. EDMS EDMS 08:08 08:08 Troponin High Sensitivity+C.LAB.BRZ ordered. EDMS EDMS 08:08 08:08 CREATINE PHOSPHOKINASE+C.LAB.BRZ ordered. EDMS EDMS
--- NOTE | 2025-07-03 10:11 | ER ---
Nurse's Notes [facility] Name: Richard Bunn Age: 25 yrs Sex: Male : 2000 Arrival Date: 07/03/2025 Time: 07:57 Bed 7 Private MD: Diagnosis: Essential (primary) hypertension Presentation: 07/03 08:05 Chief complaint: Patient states: Elevated BP, nausea, swelling hands/feet for a few ll1 days. Haven't picked up his BP meds. Coronavirus screen: Client denies travel out of the [place] in the last 14 days. At this time, the client does not indicate any symptoms associated with coronavirus-19. Ebola Screen: Patient denies travel to an Ebola-affected area in the 21 days before illness onset. Initial Sepsis Screen: Does the patient meet any 2 criteria? No. Patient's initial sepsis screen is negative. Does the patient have a suspected source of infection? No. Patient's initial sepsis screen is negative. Risk Assessment: Do you want to hurt yourself or someone else? Patient reports no desire to harm self or others. Onset of symptoms was July 01, 2025. 08:05 Method Of Arrival: Ambulatory ll1 08:05 Acuity: JACQUELINE 3 ll1 Historical: - Allergies: 08:04 No Known Drug Allergies; ll1 - PMHx: 08:04 Hypertensive disorder; ll1 - Immunization history:: Adult Immunizations up to date. - Infectious Disease History:: Denies. - Social history:: Smoking status: Patient denies any tobacco usage or history of. Screenin:49 [facility] ED Fall Risk Assessment (Adult) History of falling in the last 3 months, db including since admission No falls in past 3 months (0 pts) Confusion or Disorientation No (0 pts) Intoxicated or Sedated No (0 pts) Impaired Gait No (0 pts) Mobility Assist Device Used No (0 pt) Altered Elimination No (0 pt) Score/Fall Risk Level 0 - 2 = Low Risk Oriented to surroundings, Maintained a safe environment. Abuse screen: Denies threats or abuse. Denies injuries from another. Nutritional screening: No deficits noted. Tuberculosis screening: No symptoms or risk factors identified. Assessment: 08:49 Reassessment: Patient appears in no apparent distress at this time. Patient and/or db family updated on plan of care and expected duration. Pain level reassessed. Patient is alert, oriented x 3, equal unlabored respirations, skin warm/dry/pink. General: Appears in no apparent distress. comfortable, Behavior is calm, cooperative. Pain: Denies pain. Neuro: Level of Consciousness is awake, alert, obeys commands, Oriented to person, place, time, situation. Respiratory: Airway is patent Respiratory effort is even, unlabored, Respiratory pattern is regular, symmetrical. GI: Abdomen is non-distended, Reports nausea. 10:00 Reassessment: Patient appears in no apparent distress at this time. Patient and/or db family updated on plan of care and expected duration. Pain level reassessed. Patient is alert, oriented x 3, equal unlabored respirations, skin warm/dry/pink. 11:00 Reassessment: Patient appears in no apparent distress at this time. Patient and/or db family updated on plan of care and expected duration. Pain level reassessed. Patient is alert, oriented x 3, equal unlabored respirations, skin warm/dry/pink. Patient states feeling better. Vital Signs: 08:05 BP 147 / 106; ll1 08:11 BP 142 / 106; Pulse 86; Resp 17; Temp 98.9(O); Pulse Ox 99% ; Weight 104.33 kg; Height ll1 5 ft. 8 in. ; Pain 0/10; 08:38 BP 158 / 110; Pulse 93; Resp 16; Pulse Ox 98% ; db 09:30 BP 145 / 105; Pulse 90; Resp 18; Pulse Ox 95% ; db 11:00 BP 170 / 107; Pulse 93; Resp 18; Pulse Ox 97% ; db 08:11 Body Mass Index 34.97 (104.33 kg, 172.72 cm) ll1 08:11 Pain Scale: Adult ll1 11:00 ROVIDER AWARE OF BP. PT IS PICKING UP BP MEDICATIONS db ED Course: 08:01 Patient arrived in ED. im 08:01 Pili Thakur FNP-C is PHCP. kb 08:01 Enrrique Gary MD is Attending Physician. kb 08:06 Triage completed. ll1 08:06 Arm band placed on Patient placed in an exam room, on a stretcher. ll1 08:29 Susan Barnes, RN is Primary Nurse. db 08:45 Initial lab(s) drawn, by me, sent to lab. EKG done, by ED staff. Inserted saline lock: db 20 gauge in right antecubital area, using aseptic technique. Blood collected. Flushed with 10 mL NS. 08:50 Patient has correct armband on for positive identification. Bed in low position. Call db light in reach. Side rails up X 1. Client placed on continuous cardiac and pulse oximetry monitoring. NIBP monitoring applied. quality assurance monitor final on. Pulse ox on. NIBP on. Pillow given. 09:25 XRAY Chest (1 view) In Process Unspecified. EDMS 11:22 Provided Education on: DISCHARGE AND BP HOME CARE AND FOLLOWUP. db 11:22 No provider procedures requiring assistance completed. IV discontinued, intact, db bleeding controlled, No redness/swelling at site. Administered Medications: 09:57 Not Given (Physician Discretion): clonidine0.1 mg PO once kb 10:10 Drug: NS 0.9% IV 1000 ml IV at 1000 ml once; to be given as a bolus over 60 minutes db Route: IV; Rate: 1000 ml; Site: right antecubital; 11:24 Follow up: Response: No adverse reaction; IV Status: Completed infusion; IV Intake: db 1000ml Medication: 08:49 VIS not applicable for this client. db Intake: 11:24 IV: 1000ml; Total: 1000ml. db Outcome: 10:10 Discharge ordered by . kb 11:22 Discharged to home ambulatory, db 11:22 Condition: stable 11:22 Discharge instructions given to patient, Instructed on discharge instructions, follow up and referral plans. 11:24 Patient left the ED. db Signatures: Dispatcher [employer] EDW[place] Pili Thakur, Zain Gil, RN RN ll1 Susan Barnes, RN RN db Elda Chappell
[2025-07-03 11:29] VITALS: TEMP 98.9
[2025-07-03 11:33] VITALS: BP 170/107; O2SAT 97
== END 2025-07-03 11:24 | disposition home or self-care (01) ==
LOC: ER 07:57
DX: I10 Essential (primary) hypertension (principal)
CPT/HCPCS: 36415; 71045; 80048; 80076; 82550; 83735; 84484; 85025; 93005; 96360; 99285; J7030